=== PATIENT | female | born 1970 | race Caucasian/White ===

== ENCOUNTER → 2020-09-13 08:35 | Outpatient (BNVA) | payer OTHER, SELFPAY | PROVIDERS: Family Provider Family Medicine; Visit Provider Obstetrics & Gynecology | DX: Z00.00 Encounter for general adult medical examination without abnormal findings (principal); N93.8 Other specified abnormal uterine and vaginal bleeding; Z12.39 Encounter for other screening for malignant neoplasm of breast | CPT/HCPCS: 80061; 83001; 83036; 84443 ==

== ENCOUNTER → 2020-10-03 08:40 | Outpatient (BNVA) | payer OTHER, SELFPAY | PROVIDERS: Family Provider Family Medicine; Visit Provider Obstetrics & Gynecology | DX: E03.9 Hypothyroidism, unspecified (principal); R79.89 Other specified abnormal findings of blood chemistry | CPT/HCPCS: 84439; 84443; 84481 ==

== ENCOUNTER 2020-10-21 07:50 | Outpatient (CLI) | payer OTHER, SELFPAY ==
--- NOTE | 2020-10-21 08:00 | MM_ITS ---
WS: [id number] SCREENING DIGITAL MAMMOGRAM WITH CAD HISTORY: Z12.39 - Encounter for other screening for malignant neoplasm of breast COMPARISON: 02/26/2018 Bilateral CC and MLO views submitted. Computer aided detection analyzed. Breast composition: The breasts are heterogeneously dense, which may obscure small masses. Increasing density and asymmetry seen on the RIGHT MLO projection above the nipple line. This is in the area th e palpable abnormalities described in 2018 which were cysts. Due to the slight architectural distorti on additional imaging is recommended at this time. MM/[place] [id number] IMPRESSION: BI-RADS: 0-Incomplete: Need additional imaging evaluation FOLLOW UP: Need Additional Imaging RIGHT breast: Spot compression views (CC and MLO). True ML. Ultrasound to follo w if abnormality persists.
== END 2020-10-21 07:51 | disposition home or self-care (01) ==
LOC: RADSHAW 07:51
PROVIDERS: Visit Provider Obstetrics & Gynecology
DX: Z12.31 Encounter for screening mammogram for malignant neoplasm of breast (principal)
CPT/HCPCS: 77067

== ENCOUNTER 2020-11-28 08:14 | Outpatient (CLI) | payer OTHER, SELFPAY ==
--- NOTE | 2020-11-28 08:22 | US_ITS ---
WS: [id number] ADDITIONAL VIEWS RIGHT BREAST RIGHT breast ultrasound, limited HISTORY: Right breast density and asymmetry COMPARISON: 10/21/2020 and 02/26/2018 Compression views right CC and MLO projection. True ML also submitted. Asymmetry persists in the anterior to mid depth upper outer quadrant of the RIGHT breast. Slightly le ss distortion. No nipple retraction. No suspicious calcifications. RIGHT breast ultrasound, limited. Numerous cysts within the upper-outer quadrant of the RIGHT breast. These are in the same location a s the dense asymmetry on mammography. There is no mass identified or distortion or soft tissue mass. Numerous cysts were noted on a prior ultrasound from 02/26/2018. The cysts have increased in number bu t are smaller and more compacted. US/US breast RT limited* [id number] IMPRESSION: BI-RADS: 2-Benign FOLLOW-UP: 1 Year Follow-up
== END 2020-11-28 08:15 | disposition home or self-care (01) ==
PROVIDERS: Visit Provider Obstetrics & Gynecology
DX: N64.89 Other specified disorders of breast (principal)
CPT/HCPCS: 76642; 77065

== ENCOUNTER → 2021-10-09 10:56 | Outpatient (BNVA) | payer OTHER, SELFPAY | PROVIDERS: Visit Provider Obstetrics & Gynecology | DX: Z85.41 Personal history of malignant neoplasm of cervix uteri (principal); R79.89 Other specified abnormal findings of blood chemistry | CPT/HCPCS: 83001; 84443; 87624 ==

== ENCOUNTER 2021-11-13 06:52 | Outpatient (CLI) | payer OTHER, SELFPAY ==
--- NOTE | 2021-11-13 07:15 | US_ITS ---
WS: [id number] TRANSABDOMINAL PELVIC AND TRANSVAGINAL PELVIC ULTRASOUND HISTORY: R10.2 - Pelvic and perineal pain, prior hysterectomy. COMPARISON: 02/15/2021 Status post prior hysterectomy. No midline mass identified. No free fluid in the pelvis or cul-de-sac . Neither ovary is identified on transabdominal or transvaginal vaginal pelvic imaging. There is no sourav e fluid or adnexal mass. US/US pelvic with transvaginal IMPRESSION: 1. Status post hysterectomy. 2. No pelvic masses or ascites identified. 3. Neither ovary is identified.
== END 2021-11-13 06:53 | disposition home or self-care (01) ==
LOC: RAD 06:52
PROVIDERS: Visit Provider Obstetrics & Gynecology
DX: R10.2 Pelvic and perineal pain (principal); Z85.41 Personal history of malignant neoplasm of cervix uteri; Z90.710 Acquired absence of both cervix and uterus
CPT/HCPCS: 76830; 76856

== ENCOUNTER 2022-11-01 09:45 | Outpatient (CLI) | payer OTHER, SELFPAY ==
[2022-11-01 11:15] LABS: Follicle Stimulating Hormone 101.5 mIU/mL
== END 2022-11-01 09:46 | disposition home or self-care (01) ==
LOC: LAB 09:55
PROVIDERS: Visit Provider Obstetrics & Gynecology
DX: Z01.419 Encounter for gynecological examination (general) (routine) without abnormal findings (principal)
CPT/HCPCS: 36415; 83001

== ENCOUNTER 2022-12-04 08:09 | Outpatient (CLI) | payer OTHER, SELFPAY ==
--- NOTE | 2022-12-04 08:39 | MM_ITS ---
WS: [id number] VIEWS: MLO and CC views both breasts. 3D digital tomosynthesis is also included in this exam. Comparison made with prior exam of 02/16/2018, 10/21/2020.. Findings: There was no sign of mass, architectural distortion or suspicious calcification in either breast. Sta ble appearing nodular densities in both breasts. Heterogeneously dense MM/[place] [id number] Impression: BI-RADS: 2-Benign FOLLOW-UP: 1 Year Follow-up This mammogram was also analyzed by the Computer Aided Detection System R2 Imag e Specialist Field Engineer.
== END 2022-12-04 08:10 | disposition home or self-care (01) ==
LOC: RAD 08:13
PROVIDERS: PCP Family Medicine; Visit Provider Obstetrics & Gynecology
DX: Z12.39 Encounter for other screening for malignant neoplasm of breast (principal)
CPT/HCPCS: 77063; 77067

== ENCOUNTER 2023-06-20 09:16 | Outpatient (CLI) | payer OTHER, SELFPAY ==
--- NOTE | 2023-06-20 09:19 | CT_ITS ---
WS: [id number] CT ABDOMEN AND PELVIS WITH AND WITHOUT CONTRAST HISTORY: HYDRONEPHROSIS TECHNIQUE: Unenhanced 5 mm axial imaging first performed through the abdomen. Post contrast imaging t hrough the abdomen and pelvis. Oral contrast has been provided. Sagittal and coronal reformats are s ubmitted. All CT scans at [facility] use at least one of these dose optimization techniques: automated exposure control; mA and/or kV adjustment per patient size (includes targeted exams where d ose is matched to clinical indication); or iterative reconstruction. CONTRAST: Omnipaque 350; 95 mL IV. DLP: 590.63 mGy.cm COMPARISON: RIGHT upper quadrant ultrasound 05/14/2023 Benign granuloma RIGHT lung base. Normal size heart. No hiatal hernia. Liver, spleen, pancreas and adrenal glands are negative. Cholelithiasis without acute cholecystitis. Normal aorta. RIGHT kidney: Marked hydronephrosis. The entire RIGHT ureter is tortuous and dilated. The cause of th e obstruction is not evident. No renal or ureteral calcifications. LEFT kidney: Mild hydronephrosis and hydroureter There is mild dilatation of the calyces. Urinary bladder is markedly distended extending over a length of 13.2 cm. No mass identified within t he bladder. There is no free fluid in the pelvis. No adenopathy. Marked diffuse constipation. Prior hysterectomy. No destructive bone lesions. IMPRESSION: 1. Bilateral hydronephrosis, RIGHT greater than LEFT. Cause of the obstruction is not apparent. The R IGHT ureter is identified to the level of the bladder. No calcifications or stones within the kidneys or ureters appreciated. There is marked distention of the urinary bladder which could possibly be re sponsible for the renal obstruction. Cystoscopy may be necessary to evaluate the cause of the uretera l obstruction. 2. Cholelithiasis without acute cholecystitis. 3. Diffuse constipation.
[2023-06-20] MEDS: iohexol 350 mg/mL 500 mL Btl (per mL) IV (09:28)
[2023-06-20] MEDS: iohexol 350 mg/mL 500 mL Btl (per mL) PO (09:29)
== END 2023-06-20 09:17 | disposition home or self-care (01) ==
PROVIDERS: PCP Family Medicine; Visit Provider Family Medicine
DX: N13.1 Hydronephrosis with ureteral stricture, not elsewhere classified (principal); N32.89 Other specified disorders of bladder; K80.20 Calculus of gallbladder without cholecystitis without obstruction; K59.00 Constipation, unspecified
CPT/HCPCS: 74178; Q9967

== ENCOUNTER 2024-02-07 08:12 | Outpatient (CLI) | payer OTHER, SELFPAY ==
--- NOTE | 2024-02-07 08:30 | MM_ITS ---
WS: [id number] BILATERAL SCREENING DIGITAL TOMOSYNTHESIS MAMMOGRAM WITH CAD HISTORY: Z12.39 - Encounter for other screening for malignant neop... COMPARISON: 12/04/2022, 02/26/2018, 10/21/2020 Bilateral CC and MLO views with tomosynthesis and synthetic mammography submitted. Computer aided det ection analyzed. Breast composition: The breasts are extremely dense, which lowers the sensitivity of mammography. No suspicious masses, microcalcifications or architectural distortion. MM/[place] [id number] IMPRESSION: BI-RADS: 2-Benign FOLLOW UP: 1 Year Follow-up
== END 2024-02-07 08:13 | disposition home or self-care (01) ==
LOC: RAD 08:12
PROVIDERS: PCP Family Medicine; Visit Provider Obstetrics & Gynecology
DX: Z12.31 Encounter for screening mammogram for malignant neoplasm of breast (principal); Z12.39 Encounter for other screening for malignant neoplasm of breast
CPT/HCPCS: 77063; 77067

== ENCOUNTER 2024-03-17 07:34 | Day surgery (SDC) | payer OTHER, SELFPAY ==
--- NOTE | 2024-03-17 05:39 | W.PM.OPSUD ---
Surgery/Procedure H&P Update DATE OF PROCEDURE: March 17, 2024 DATE H&P PERFORMED: 02/19/24 H&P UPDATE INFORMATION: I have reviewed H&P completed within last 30 days, I have examined patient prior to procedure, No changes to prior documentation and H&P is in [facility] EMR on date indicated PLANNED PROCEDURE: Operation Date: 03/17/24 08:40 Proposed Procedures p Colonoscopy 41182, G0105, Z12.11(Not Applicable) - Jimmy Cleveland MD
[2024-03-17 07:44] VITALS: BMI 21.6
[2024-03-17] MEDS: sodium chloride 0.9% 1,000 ML 30 ML IV (07:48)
[2024-03-17 07:51] VITALS: BP 130/87; PULSE 74; RESP 18; TEMP 36.4; O2SAT 100
--- NOTE | 2024-03-17 08:37 | P.ANESASSM_ITS ---
Pre-Anesthetic Assessment Height/Weight: Height 1.65 m Weight 58.967 kg Temp Pulse Resp BP Pulse Ox 97.5 F L 74 18 130/87 100 03/17/24 07:51 03/17/24 07:51 03/17/24 07:51 03/17/24 07:51 03/17/24 07:51 Preop Diagnosis: screening Operation Date: 03/17/24 08:40 Proposed Procedures p Colonoscopy 60582, G0105, Z12.11(Not Applicable) - Jimmy Cleveland MD Was Beta Elizabeth taken within 24 hours: N/A Was Clonidine taken within 24 hours: N/A Last intake: Intake Last Liquid Date 03/16/24 Last Liquid Time 22:00 Last Solid Date 03/15/24 Social No alcohol and No tobacco Exam alert, oriented x 3, clear to auscultation bilaterally and regular rate & rhythm Airway Submandibular: within normal limits Cervical ROM: within normal limits Mallampati: Class II Dentition: full History/ROS No significant history except as noted and No significant complaints Pulmonary None reported CV/HEM None reported None reported Hepatic None reported GI None reported Metabolic None reported Musc/skel None reported Neuropsych None reported Anesthetic Plan ASA status: 1 Anesthesia: Anesthesia Evaluation and MAC Risk of > 500 ml blood loss (7ml/kg in children): No Medications/Allergies Home Medications Medication Instructions Recorded Confirmed Last Taken Type tamsulosin 0.4 mg capsule (Flomax) 0.4 mg PO DAILY 01/23/24 03/12/24 03/15/24 History estradiol 0.5 mg tablet 0.5 mg PO DAILY 03/12/24 03/12/24 03/16/24 History multivitamin 1 tab PO DAILY 03/12/24 03/12/24 03/16/24 History Allergies Allergy/AdvReac Type Severity Reaction Status Date / Time codeine Allergy Intermediate hives Verified 03/17/24 07:46 Current Medications Generic Name Dose Route Start Last Admin Trade Name Freq PRN Reason Stop Dose Admin Sodium Chloride 1,000 mls @ 30 mls/hr 03/17/24 07:45 03/17/24 07:48 Sodium Chloride 0.9% IV 03/18/24 07:44 30 mls/hr .Q24H DEEPTHI Administration PFSH Anesthesia Medical History History of cervical cancer Surgical History H/O: hysterectomy [facility] Dr [address] 2004 Family History Family/Other Breast cancer paternal aunt, age onset unknown Denies family history of Colon cancer Ovarian cancer Diabetes Clotting disorder Heart disease Hyperlipidemia Anesthesia complication Bleeding disorder Hypertension Uterine cancer Thyroid disease Stroke Social History Smoking and tobacco/nicotine status: never used tobacco/nicotine Data Anesthesia Cardiac Studies: No Data to Display
[2024-03-17 09:21] VITALS: BP 108/69; PULSE 74; RESP 18; TEMP 36.3; O2SAT 100
--- NOTE | 2024-03-17 15:14 | ANE.PACU2 ---
Inpatient post-anesthesia follow up: Airway intact: Yes Vital signs: Temperature 97.4 F Pulse Rate 74 Respiratory Rate 18 Blood Pressure 108/69 Pulse Oximetry 100 Oxygen Delivery Me thod Room Air Oxygen Flow Rate Fraction of Inspir ed Oxygen Hydration adequate: Yes Nausea and vomiting: No Pain level: 2 Mental status: Baseline
== END 2024-03-17 09:51 | disposition home or self-care (01) ==
PROVIDERS: PCP Family Medicine; Visit Provider Surgery
PROC: 0DJD8ZZ Inspection of Lower Intestinal Tract, Via Natural or Artificial Opening Endoscopic (ICD-10-PCS; CPT 45378; principal; 2024-03-17 08:40)
DX: Z12.11 Encounter for screening for malignant neoplasm of colon (principal); D12.0 Benign neoplasm of cecum; Z85.41 Personal history of malignant neoplasm of cervix uteri
CPT/HCPCS: 45380; 88305; J2704; J7030